=== PATIENT | male | born 1960 | race Caucasian/White ===

== ENCOUNTER → 2022-10-03 14:19 | Outpatient (BNVA) | payer MEDICARE, SELFPAY | PROVIDERS: Family Provider Family Medicine; PCP Family Medicine; Visit Provider Dermatology | DX: L82.1 Other seborrheic keratosis (principal); L81.4 Other melanin hyperpigmentation; L21.8 Other seborrheic dermatitis; D22.39 Melanocytic nevi of other parts of face; Z85.820 Personal history of malignant melanoma of skin; S70.361A Insect bite (nonvenomous), right thigh, initial encounter; S70.362A Insect bite (nonvenomous), left thigh, initial encounter; S80.861A Insect bite (nonvenomous), right lower leg, initial encounter; S80.862A Insect bite (nonvenomous), left lower leg, initial encounter; Y99.9 Unspecified external cause status | CPT/HCPCS: 99204 ==

== ENCOUNTER 2023-04-10 08:31 | Outpatient (CLI) | payer MEDICARE, SELFPAY ==
--- NOTE | 2023-04-10 08:38 | US_ITS ---
WS: [id number] ULTRASOUND THYROID TECHNIQUE: Ultrasound of the thyroid. CLINICAL INFORMATION: ABNORMAL THYROID STIMULATING HORMONE/HYPOTHYROIDISM COMPARISON: None. FINDINGS: Thyroid: Right and left thyroid lobes are small in size with heterogeneous echotexture no thyroid nod ules are present. Right thyroid lobe: 1.5 cm x 0.8 cm x 0.4 cm 0.22 cc Left thyroid lobe: 2.7 cm x 0.8 cm x 1.0 cm. 1.0 cc Isthmus: 0.2 mm. Cervical lymphadenopathy: None. IMPRESSION: 1. Diminutive slightly coarse atrophic thyroid gland. Recommend correlation with thyroid function st udies and history of thyroiditis. 2. No cystic or solid nodules to target for biopsy.
== END 2023-04-10 08:32 | disposition home or self-care (01) ==
LOC: RAD 08:31
PROVIDERS: Family Provider Family Medicine; PCP Family Medicine; Visit Provider Family Medicine
DX: R94.6 Abnormal results of thyroid function studies (principal); E03.9 Hypothyroidism, unspecified
CPT/HCPCS: 76536

== ENCOUNTER → 2023-06-27 12:30 | Outpatient (BNVA) | payer MEDICARE, SELFPAY | PROVIDERS: Family Provider Family Medicine; PCP Family Medicine; Visit Provider Surgery | DX: Z12.11 Encounter for screening for malignant neoplasm of colon (principal) | CPT/HCPCS: 99024; 99203 ==

== ENCOUNTER 2023-08-09 11:30 | Day surgery (SDC) | payer MEDICARE, SELFPAY ==
--- NOTE | 2023-08-09 11:47 | W.PM.OPSFHP ---
Same Day Surgery H&P Indication for Procedure/HPI DATE OF PROCEDURE: August 09, 2023 CHIEF COMPLAINT/INDICATIONFOR SURGICAL PROCEDURE: need for screening colonoscopy PREOP DIAGNOSIS: need for screening colonoscopy PLANNED PROCEDURE: Operation Date: 08/09/23 13:05 Proposed Procedures p Colonoscopy 32951, G0121, Z12.11(Not Applicable) - Julien Delaney MD Medications/Allergies* Home Medications Medication Instructions Recorded Confirmed Type atorvastatin 80 mg tablet 80 mg PO BEDTIME 08/31/21 08/08/23 History lisinopril 20 1 tab PO DAILY 08/31/21 08/08/23 History mg-hydrochlorothiazide 25 mg tablet metoprolol succinate 50 mg 50 mg PO .AFTERNOON 08/31/21 08/08/23 History tablet,extended release 24 hr ketoconazole 2 % shampoo 1 applic topical ONCE PRN Outbreak 08/08/23 08/08/23 History ketoconazole 2 % topical cream 1 applic topical BID PRN Outbreak 08/08/23 08/08/23 History levothyroxine 125 mcg tablet 125 mcg PO DAILY 08/08/23 08/08/23 History mirtazapine 30 mg tablet 30 mg PO BEDTIME 08/08/23 08/08/23 History Allergies/Adverse Reactions Allergy/AdvReac Type Severity Reaction Status Date / Time No Known Drug Allergies Allergy Unknown Unknown Verified 06/27/23 13:19 Pertinent History/Comorbid Conditions* Medical History (Updated 08/31/21 @ 12:40 by Maya Reno DO) No pertinent past medical history Surgical History (Updated 08/31/21 @ 12:40 by Maya Reno DO) No pertinent past surgical history Family History (Updated 08/08/23 @ 11:25 by Kady Bauman) History of skin cancer Social History Smoking and tobacco/nicotine status: never used tobacco/nicotine Pertinent Exam Findings alert, oriented x 3, clear to auscultation bilaterally and regular rate & rhythm Recommendations Surgery/Procedure today Coding Level of Care Code Acute Code for Chg Fwd
[2023-08-09 11:49] VITALS: BP 151/96; PULSE 80; RESP 16; TEMP 36.2; O2SAT 96; BMI 37.1
[2023-08-09] MEDS: sodium chloride 0.9% 1,000 ML 30 ML IV (12:02)
--- NOTE | 2023-08-09 12:03 | ANES.PREANE2 ---
Pre-Anesthetic Assessment Height/Weight: Height 1.68 m Weight 104.326 kg Temp Pulse Resp BP Pulse Ox O2 Del Method 97.2 F L 80 16 151/96 96 Room Air 08/09/23 11:49 08/09/23 11:49 08/09/23 11:49 08/09/23 11:49 08/09/23 11:49 08/09/23 11:49 Preop Diagnosis: need for screening colonoscopy Operation Date: 08/09/23 13:05 Proposed Procedures p Colonoscopy 85326, G0121, Z12.11(Not Applicable) - Julien Delaney MD Familial anesthetic complications: none Was Beta Familia taken within 24 hours: N/A Was Clonidine taken within 24 hours: N/A Last intake: Intake Last Liquid Date 08/08/23 Last Liquid Time 23:30 Last Solid Date 08/07/23 Last Solid Time 12:00 Social No alcohol and No tobacco Exam alert, oriented x 3, clear to auscultation bilaterally and regular rate & rhythm Airway Dentition: chipped Comments: Comments: full moreno Pulmonary Sleep Apnea (can't lay flat) CV/HEM Hypertension Metabolic Hyperlipidemia and Thyroid Disease Anesthetic Plan ASA status: 3 Anesthesia: MAC Risk of > 500 ml blood loss (7ml/kg in children): No Medications/Allergies Home Medications Medication Instructions Recorded Confirmed Last Taken Type atorvastatin 80 mg tablet 80 mg PO BEDTIME 08/31/21 08/09/23 08/08/23 History lisinopril 20 1 tab PO DAILY 08/31/21 08/09/23 08/08/23 History mg-hydrochlorothiazide 25 mg tablet metoprolol succinate 50 mg 50 mg PO .AFTERNOON 08/31/21 08/09/23 08/08/23 History tablet,extended release 24 hr ketoconazole 2 % shampoo 1 applic topical ONCE PRN Outbreak 08/08/23 08/09/23 Unknown History ketoconazole 2 % topical cream 1 applic topical BID PRN Outbreak 08/08/23 08/09/23 Unknown History levothyroxine 125 mcg tablet 125 mcg PO DAILY 08/08/23 08/09/23 08/09/23 History mirtazapine 30 mg tablet 30 mg PO BEDTIME 08/08/23 08/09/23 08/07/23 History Allergies Allergy/AdvReac Type Severity Reaction Status Date / Time No Known Drug Allergies Allergy Unknown Unknown Verified 06/27/23 13:19 Current Medications Generic Name Dose Route Start Last Admin Trade Name Justinoq PRN Reason Stop Dose Admin Sodium Chloride 1,000 mls @ 30 mls/hr 08/09/23 11:45 08/09/23 12:02 Sodium Chloride 0.9% IV 30 mls/hr .Q24H TOMMY Administration PFSH Anesthesia Medical History (Updated 08/08/23 @ 11:23 by Kady Bauman) No pertinent past medical history Surgical History No pertinent past surgical history Family History (Updated 08/08/23 @ 11:25 by Kady Bauman) Other History of skin cancer Social History Smoking and tobacco/nicotine status: never used tobacco/nicotine Data Anesthesia Cardiac Studies: No Data to Display
[2023-08-09 12:38] VITALS: BP 125/80; PULSE 68; RESP 16; TEMP 36.3; O2SAT 97
[2023-08-09 12:59] VITALS: BP 126/82; PULSE 64; RESP 18; O2SAT 97
--- NOTE | 2023-08-09 13:05 | ANE.PACU2 ---
Inpatient post-anesthesia follow up: Airway intact: Yes Vital signs: Temperature 97.3 F Pulse Rate 64 Respiratory Rate 18 Blood Pressure 126/82 Pulse Oximetry 97 Oxygen Delivery Me thod Room Air Oxygen Flow Rate Fraction of Inspir ed Oxygen Hydration adequate: Yes Nausea and vomiting: No Pain level: 1 Mental status: Baseline
== END 2023-08-09 13:09 | disposition home or self-care (01) ==
PROVIDERS: PCP Family Medicine; Visit Provider Surgery
PROC: 0DJD8ZZ Inspection of Lower Intestinal Tract, Via Natural or Artificial Opening Endoscopic (ICD-10-PCS; CPT 45378; principal; 2023-08-09 13:05)
DX: Z12.11 Encounter for screening for malignant neoplasm of colon (principal); K57.30 Diverticulosis of large intestine without perforation or abscess without bleeding; G47.30 Sleep apnea, unspecified; E78.5 Hyperlipidemia, unspecified
CPT/HCPCS: G0121; J2704; J7030

== ENCOUNTER → 2023-10-24 14:10 | Outpatient (BNVA) | payer MEDICARE, SELFPAY | PROVIDERS: PCP Family Medicine; Visit Provider Nurse Practitioner Family | DX: D48.5 Neoplasm of uncertain behavior of skin (principal); L57.0 Actinic keratosis; L21.8 Other seborrheic dermatitis; L82.1 Other seborrheic keratosis; L81.4 Other melanin hyperpigmentation; Z85.820 Personal history of malignant melanoma of skin | CPT/HCPCS: 11102; 17000; 99214 ==

== ENCOUNTER → 2024-04-22 14:01 | Outpatient (BNVA) | payer MEDICARE, SELFPAY | PROVIDERS: PCP Family Medicine; Visit Provider Nurse Practitioner Family | DX: D22.5 Melanocytic nevi of trunk (principal); L81.4 Other melanin hyperpigmentation; L57.8 Other skin changes due to chronic exposure to nonionizing radiation; Z08 Encounter for follow-up examination after completed treatment for malignant neoplasm; Z85.820 Personal history of malignant melanoma of skin; L82.0 Inflamed seborrheic keratosis; L53.8 Other specified erythematous conditions; Z78.9 Other specified health status | CPT/HCPCS: 17110; 99213 ==

== ENCOUNTER → 2024-05-30 11:29 | Outpatient (BNVA) | payer MEDICARE, SELFPAY | PROVIDERS: PCP Family Medicine; Referring Provider Family Medicine; Visit Provider Internal Medicine | DX: E03.9 Hypothyroidism, unspecified (principal); I10 Essential (primary) hypertension; R19.7 Diarrhea, unspecified | CPT/HCPCS: 99204 ==

== ENCOUNTER → 2024-08-29 09:57 | Outpatient (BNVA) | payer MEDICARE, SELFPAY | PROVIDERS: PCP Family Medicine; Visit Provider Internal Medicine | DX: E03.9 Hypothyroidism, unspecified (principal); I10 Essential (primary) hypertension | CPT/HCPCS: 99214 ==

== ENCOUNTER → 2024-10-15 13:46 | Outpatient (BNVA) | payer MEDICARE, SELFPAY | PROVIDERS: PCP Family Medicine; Visit Provider Nurse Practitioner Family | DX: L81.4 Other melanin hyperpigmentation (principal); L82.1 Other seborrheic keratosis; L57.8 Other skin changes due to chronic exposure to nonionizing radiation; Z08 Encounter for follow-up examination after completed treatment for malignant neoplasm; Z85.820 Personal history of malignant melanoma of skin; L57.0 Actinic keratosis | CPT/HCPCS: 17000; 99213 ==

== ENCOUNTER → 2024-10-24 10:23 | Outpatient (BNVA) | payer MEDICARE, SELFPAY | PROVIDERS: PCP Family Medicine; Visit Provider Internal Medicine | DX: E03.9 Hypothyroidism, unspecified (principal); I10 Essential (primary) hypertension | CPT/HCPCS: 99214 ==

== ENCOUNTER 2024-11-26 13:51 | Outpatient (CLI) | payer MEDICARE, SELFPAY ==
[2024-11-26 14:59] LABS: Free T4 Free Thyroxine 0.84 ng/dL (0.82-1.77); Thyroid Stimulating Hormone 37.50 uIU/mL (0.27-4.20)
== END 2024-11-26 13:52 | disposition home or self-care (01) ==
PROVIDERS: PCP Family Medicine; Visit Provider Internal Medicine
DX: E03.9 Hypothyroidism, unspecified (principal)
CPT/HCPCS: 36415; 84439; 84443

== ENCOUNTER 2024-12-31 08:56 | Outpatient (CLI) | payer MEDICARE, SELFPAY ==
[2024-12-31 10:09] LABS: Free T4 Free Thyroxine 1.45 ng/dL (0.82-1.77); Thyroid Stimulating Hormone 18.33 uIU/mL (0.27-4.20)
== END 2024-12-31 08:57 | disposition home or self-care (01) ==
PROVIDERS: PCP Family Medicine; Visit Provider Internal Medicine
DX: E03.9 Hypothyroidism, unspecified (principal)
CPT/HCPCS: 36415; 84439; 84443